=== PATIENT | female | born 1995 | race Caucasian/White ===

== ENCOUNTER 2018-04-24 16:21 | Emergency (ER) | payer BC, OTHER ==
[2018-04-24] MEDS ORDERED: SODIUM CHLORIDE 0.9% 500 ML IV STA (18:22)
--- NOTE | 2018-04-24 18:40 | ED ---
Abdominal Pain HPI - General Source: patient, RN notes reviewed Mode of arrival: ambulatory Limitations: no limitations <Ramu Mak - Last Filed: 04/24/18 18:38> <Rodriguez Barrientos - Last Filed: 04/24/18 20:35> - General Chief Complaint: Abdominal Pain Stated Complaint: Poss UTI-kidney transplant pt Time Seen by Provider: 04/24/18 18:21 - History of Present Illness Initial Comments: This is a 22-year-old female presents emergency Department with chief complaint of urinary tract infection. Patient states that she felt she has some symptoms and was urgent care a few days ago and was told she did have a urinary tract infection. Though she was informed today the culture did not grow anything. She has been taken ciprofloxacin 500 mg twice a day. Patient is concerned that she's been having pain over her kidney transplant read it. She states this was performed 10 years ago at [facility] states that she had renal failure secondary to lupus. Patient states that her hypoid gear generator advised her to the emergency department to have evaluation for lab work and urinalysis and possible ultrasound. Patient states her normal creatinine is somewhere between 1.7- 2.3. She states that she had problems with rejection and states that has not been well since. (Ramu Mak) - Related Data Home Medications Medication Instructions Recorded Confirmed Tacrolimus [Prograf] 2 mg PO BID 06/06/16 04/24/18 Tacrolimus [Prograf] 5 mg PO BID 06/06/16 04/24/18 Norgestimate-Ethinyl Estradiol 1 tab PO DAILY 08/26/17 04/24/18 [Sprintec 28 Day Tablet] Tacrolimus [Prograf] 0.5 mg PO BID 08/26/17 04/24/18 Mycophenolate Mofetil [Cellcept] 750 mg PO BID 04/24/18 04/24/18 predniSONE 10 mg PO Q48H 04/24/18 04/24/18 Allergies Allergy/AdvReac Type Severity Reaction Status Date / Time iron Allergy Itching Verified 04/24/18 18:37 Review of Systems ROS Other: All systems not noted in ROS Statement are negative. <Ramu Mak - Last Filed: 04/24/18 18:38> ROS Other: All systems not noted in ROS Statement are negative. <Rodriguez Barrientos - Last Filed: 04/24/18 20:35> ROS Statement: Those systems with pertinent positive or pertinent negative responses have been documented in the HPI. Past Medical History Past Medical History: No Reported History Additional Past Medical History / Comment(s): Lupus History of Any Multi-Drug Resistant Organisms: None Reported Additional Past Surgical History / Comment(s): kidney transplant Past Psychological History: No Psychological Hx Reported Smoking Status: Never smoker Past Alcohol Use History: Occasional Past Drug Use History: None Reported <Ramu Mak - Last Filed: 04/24/18 18:38> General Exam Limitations: no limitations General appearance: alert, in no apparent distress Head exam: Present: atraumatic, normocephalic, normal inspection Neck exam: Present: normal inspection. Absent: tenderness, meningismus, lymphadenopathy Respiratory exam: Present: normal lung sounds bilaterally. Absent: respiratory distress, wheezes, rales, rhonchi, stridor Cardiovascular Exam: Present: regular rate, normal rhythm, normal heart sounds. Absent: systolic murmur, diastolic murmur, rubs, gallop, clicks GI/Abdominal exam: Present: soft, tenderness (Mild lower abdominal), normal bowel sounds. Absent: distended, guarding, rebound, rigid Back exam: Absent: CVA tenderness (R), CVA tenderness (L) Skin exam: Present: warm, dry, intact, normal color. Absent: rash <Ramu Mak - Last Filed: 04/24/18 18:38> Vital Signs 04/24/18 04/24/18 16:28 20:20 Temperature 98.2 F Pulse Rate 78 74 Respiratory 20 16 Rate Blood Pressure 131/88 114/66 O2 Sat by Pulse 99 100 Oximetry Medical Decision Making <Ramu Mak - Last Filed: 04/24/18 18:38> - Lab Data Result diagrams: 04/24/18 19:34 04/24/18 19:34 - Radiology Data Radiology results: report reviewed (I did review the imaging and report the ultrasound shows no evidence of abnormality with respect to the transplanted kidney.), image reviewed <Rodriguez Barrientos - Last Filed: 04/24/18 20:35> - Medical Decision Making I did review the imaging and report and the lab work. I did discuss the findings with the patient her creatinine is 1.6 which is better with that normally has. Patient is currently on Cipro. Patient will continue with her current medications and follow-up with Dr. Rodriguez tomorrow. (Rodriguez Barrientos) - Lab Data Lab Results 04/24/18 04/24/18 04/24/18 Range/Units 19:34 19:34 19:34 WBC 3.6 L (3.8-10.6) k/uL RBC 3.59 L (3.80-5.40) m/uL Hgb 10.6 L (11.4-16.0) gm/dL Hct 32.0 L (34.0-46.0) % MCV 89.2 (80.0-100.0) fL MCH 29.6 (25.0-35.0) pg MCHC 33.2 (31.0-37.0) g/dL RDW 13.5 (11.5-15.5) % Plt Count 169 (150-450) k/uL Neutrophils % 59 % Lymphocytes % 28 % Monocytes % 7 % Eosinophils % 4 % Basophils % 0 % Neutrophils # 2.1 (1.3-7.7) k/uL Lymphocytes # 1.0 (1.0-4.8) k/uL Monocytes # 0.3 (0-1.0) k/uL Eosinophils # 0.1 (0-0.7) k/uL Basophils # 0.0 (0-0.2) k/uL Sodium 139 (137-145) mmol/L Potassium 4.3 (3.5-5.1) mmol/L Chloride 110 H (98-107) mmol/L Carbon Dioxide 20 L (22-30) mmol/L Anion Gap 9 mmol/L BUN 17 (7-17) mg/dL Creatinine 1.60 H (0.52-1.04) mg/dL Est GFR (CKD-EPI)AfAm 52 (>60 ml/min/1.73 sqM) Est GFR (CKD-EPI)NonAf 45 (>60 ml/min/1.73 sqM) Glucose 87 (74-99) mg/dL Plasma Lactic Acid Saul (0.7-2.0) mmol/L Calcium 9.1 (8.4-10.2) mg/dL Total Bilirubin 0.2 (0.2-1.3) mg/dL AST 16 (14-36) U/L ALT 23 (9-52) U/L Alkaline Phosphatase 51 (38-126) U/L Total Protein 6.3 (6.3-8.2) g/dL Albumin 3.8 (3.5-5.0) g/dL Amylase 87 (30-110) U/L Lipase 149 (23-300) U/L Urine Color Urine Appearance (Clear) Urine pH (5.0-8.0) Ur Specific [place] (1.001-1.035) Urine Protein (Negative) Urine Glucose (UA) (Negative) Urine Ketones (Negative) Urine Blood (Negative) Urine Nitrite (Negative) Urine Bilirubin (Negative) Urine Urobilinogen (<2.0) mg/dL Ur Leukocyte Esterase (Negative) Urine RBC (0-5) /hpf Urine WBC (0-5) /hpf Ur Squamous Epith Cells (0-4) /hpf Urine Bacteria (None) /hpf Urine HCG, Qual Not Detected (Not Detectd) 04/24/18 04/24/18 Range/Units 19:34 19:34 WBC (3.8-10.6) k/uL RBC (3.80-5.40) m/uL Hgb (11.4-16.0) gm/dL Hct (34.0-46.0) % MCV (80.0-100.0) fL MCH (25.0-35.0) pg MCHC (31.0-37.0) g/dL RDW (11.5-15.5) % Plt Count (150-450) k/uL Neutrophils % % Lymphocytes % % Monocytes % % Eosinophils % % Basophils % % Neutrophils # (1.3-7.7) k/uL Lymphocytes # (1.0-4.8) k/uL Monocytes # (0-1.0) k/uL Eosinophils # (0-0.7) k/uL Basophils # (0-0.2) k/uL Sodium (137-145) mmol/L Potassium (3.5-5.1) mmol/L Chloride (98-107) mmol/L Carbon Dioxide (22-30) mmol/L Anion Gap mmol/L BUN (7-17) mg/dL Creatinine (0.52-1.04) mg/dL Est GFR (CKD-EPI)AfAm (>60 ml/min/1.73 sqM) Est GFR (CKD-EPI)NonAf (>60 ml/min/1.73 sqM) Glucose (74-99) mg/dL Plasma Lactic Acid Saul <0.5 L (0.7-2.0) mmol/L Calcium (8.4-10.2) mg/dL Total Bilirubin (0.2-1.3) mg/dL AST (14-36) U/L ALT (9-52) U/L Alkaline Phosphatase (38-126) U/L Total Protein (6.3-8.2) g/dL Albumin (3.5-5.0) g/dL Amylase (30-110) U/L Lipase (23-300) U/L Urine Color Colorless Urine Appearance Clear (Clear) Urine pH 6.5 (5.0-8.0) Ur Specific [place] 1.005 (1.001-1.035) Urine Protein Negative (Negative) Urine Glucose (UA) Negative (Negative) Urine Ketones Negative (Negative) Urine Blood Trace H (Negative) Urine Nitrite Negative (Negative) Urine Bilirubin Negative (Negative) Urine Urobilinogen <2.0 (<2.0) mg/dL Ur Leukocyte Esterase Moderate H (Negative) Urine RBC 3 (0-5) /hpf Urine WBC 23 H (0-5) /hpf Ur Squamous Epith Cells 1 (0-4) /hpf Urine Bacteria Rare H (None) /hpf Urine HCG, Qual (Not Detectd) Disposition <Ramu Mak - Last Filed: 04/24/18 18:38> Is patient prescribed a controlled substance at d/c from ED?: No <Rodriguez Barrientos - Last Filed: 04/24/18 20:35> Clinical Impression: Abdominal pain, Urinary tract infection, History of kidney transplant Disposition: HOME SELF-CARE Condition: Good Instructions: Abdominal Pain (ED), Urinary Tract Infection in Women (ED) Referrals: None,Stated [Primary Care Provider] - 1-2 days Elizabeth Rodriguez MD [STAFF PHYSICIAN] - 1-2 days
[2018-04-24 19:48] LABS: Basophils % (A) 0 %; Eosinophils # (A) 0.1 k/uL (0-0.7); Eosinophils % (A) 4 %; HGB 10.6 gm/dL (11.4-16.0); Lymphocytes % (A) 28 %; MCH 29.6 pg (25.0-35.0); MCHC 33.2 g/dL (31.0-37.0); MCV 89.2 fL (80.0-100.0); Monocytes # (A) 0.3 k/uL (0-1.0); Monocytes % (A) 7 %; Neutrophils # (A) 2.1 k/uL (1.3-7.7); Neutrophils % (A) 59 %; Platelet Count 169 k/uL (150-450); RBC 3.59 m/uL (3.80-5.40); RDW 13.5 % (11.5-15.5); WBC 3.6 k/uL (3.8-10.6)
[2018-04-24 19:52] LABS: Appearance,Urine Clear (Clear); Bacteria,Urine Rare /hpf; Bilirubin,Urine Negative (Negative); Blood,Urine Trace (Negative); Color,Urine Colorless; Glucose,Urine (UA) Negative (Negative); Ketones,Urine Negative (Negative); Leukocyte Esterase,Urine Moderate (Negative); Nitrite,Urine Negative (Negative); PH, Urine 6.5 (5.0-8.0); Protein,Urine Negative (Negative); RBC,Urine 3 /hpf (0-5); Specific Gravity,Urine 1.005 (1.001-1.035); Squamous Epithelial Cell,Urine 1 /hpf (0-4); Urobilinogen,Urine <2.0 mg/dL (<2.0); WBC,Urine 23 /hpf (0-5)
[2018-04-24 20:04] LABS: Albumin 3.8 g/dL (3.5-5.0); Calcium 9.1 mg/dL (8.4-10.2); Potassium 4.3 mmol/L (3.5-5.1); Total Bilirubin 0.2 mg/dL (0.2-1.3); Total Protein 6.3 g/dL (6.3-8.2)
[2018-04-24 20:21] VITALS: RESP 16
--- NOTE | 2018-04-24 20:23 | US ---
EXAMINATION TYPE: US renal transplant w dop DATE OF EXAM: 04/24/2018 COMPARISON: NONE CLINICAL HISTORY: Pain. Pain possible UTI EXAM PERFORMED: Grayscale on [place] kidneys and Doppler duplex and Grayscale imaging of the transplan [place] kidney. EXAM MEASUREMENTS: [place] Right Kidney: 5.1 x 0.9 x 1.2 cm [place] Left Kidney: 5.9 x 2.5 x 1.5 Transplant Kidney: 12.0 x 4.6 x 4.9 cm Location of transplanted kidney: Right side ANATOMY: [place] Right Kidney: Atrophy [place] Left Kidney: Atrophy Transplant Kidney: Appears wnl Bladder: Anechoic Bilateral Jets seen: No IMPRESSION: Transplant kidney appears normal. No evidence of obstruction.
[2018-04-24 20:51] VITALS: BP 106/65; PULSE 63; TEMP 98.8
== END 2018-04-24 20:50 | disposition home or self-care (01) ==
LOC: EC 16:21
DX: N39.0 Urinary tract infection, site not specified (principal); Z94.0 Kidney transplant status; N18.9 Chronic kidney disease, unspecified; Z79.3 Long term (current) use of hormonal contraceptives; Z79.52 Long term (current) use of systemic steroids; Z79.899 Other long term (current) drug therapy; Z91.048 Other nonmedicinal substance allergy status
CPT/HCPCS: 36415; 76776; 80053; 81001; 81025; 82150; 83605; 83690; 85025; 87040; 99284

== ENCOUNTER 2018-05-05 15:21 | Emergency (ER) | payer BC ==
[2018-05-05 16:52] VITALS: RESP 16
[2018-05-05 16:53] LABS: Appearance,Urine Clear (Clear); Bacteria,Urine Rare /hpf; Bilirubin,Urine Negative (Negative); Blood,Urine Negative (Negative); Color,Urine Colorless; Glucose,Urine (UA) Negative (Negative); Ketones,Urine Negative (Negative); Leukocyte Esterase,Urine Small (Negative); Nitrite,Urine Positive (Negative); Protein,Urine Negative (Negative); RBC,Urine 1 /hpf (0-5); Specific Gravity,Urine 1.005 (1.001-1.035); Squamous Epithelial Cell,Urine 1 /hpf (0-4); Urobilinogen,Urine <2.0 mg/dL (<2.0); WBC,Urine 15 /hpf (0-5)
[2018-05-05 17:08] LABS: Basophils % (A) 0 %; Eosinophils # (A) 0.1 k/uL (0-0.7); Eosinophils % (A) 1 %; HCT 31.8 % (34.0-46.0); HGB 10.7 gm/dL (11.4-16.0); Lymphocytes % (A) 13 %; MCH 29.4 pg (25.0-35.0); MCHC 33.6 g/dL (31.0-37.0); MCV 87.4 fL (80.0-100.0); Monocytes # (A) 0.3 k/uL (0-1.0); Monocytes % (A) 4 %; Neutrophils # (A) 6.1 k/uL (1.3-7.7); Neutrophils % (A) 81 %; Platelet Count 241 k/uL (150-450); RBC 3.64 m/uL (3.80-5.40); RDW 13.2 % (11.5-15.5); WBC 7.4 k/uL (3.8-10.6)
[2018-05-05 17:23] LABS: Albumin 4.1 g/dL (3.5-5.0); Calcium 9.4 mg/dL (8.4-10.2); Potassium 4.1 mmol/L (3.5-5.1); Total Bilirubin 0.3 mg/dL (0.2-1.3); Total Protein 6.7 g/dL (6.3-8.2)
--- NOTE | 2018-05-05 22:16 | ED ---
General Adult HPI - General Chief complaint: Abdominal Pain Stated complaint: Abd Pain Time Seen by Provider: 05/05/18 21:17 Source: patient, RN notes reviewed Mode of arrival: ambulatory Limitations: no limitations - History of Present Illness Initial comments: 22-year-old female since to the emergency department for a chief complaint of right lower quadrant pain times one day. The patient states she had the pain about a week ago and was evaluated in the emergency department. Patient states the pain went away until today. Patient has a history of a right kidney transplant as well as ovarian cysts. Renal transplant was 10 years ago and patient has not had problems with it in the past. Patient states she has been nauseous today but has not vomited. No diarrhea. No fevers or chills at home. No concerns for sexually transmitted diseases. Patient has no other complaints at this time including shortness of breath, chest pain, abdominal pain, nausea or vomiting, headache, or visual changes. - Related Data Home Medications Medication Instructions Recorded Confirmed Tacrolimus [Prograf] 2 mg PO BID 06/06/16 05/05/18 Tacrolimus [Prograf] 5 mg PO BID 06/06/16 05/05/18 Norgestimate-Ethinyl Estradiol 1 tab PO DAILY 08/26/17 05/05/18 [Sprintec 28 Day Tablet] Tacrolimus [Prograf] 0.5 mg PO BID 08/26/17 05/05/18 Mycophenolate Mofetil [Cellcept] 750 mg PO BID 04/24/18 05/05/18 predniSONE 10 mg PO Q48H 04/24/18 05/05/18 Previous Rx's Medication Instructions Recorded Cephalexin [Keflex] 500 mg PO Q12HR #20 cap 05/05/18 Allergies Allergy/AdvReac Type Severity Reaction Status Date / Time iron Allergy Itching Verified 05/05/18 21:07 Review of Systems ROS Statement: Those systems with pertinent positive or pertinent negative responses have been documented in the HPI. ROS Other: All systems not noted in ROS Statement are negative. Past Medical History Past Medical History: No Reported History Additional Past Medical History / Comment(s): Lupus, History of Any Multi-Drug Resistant Organisms: None Reported Additional Past Surgical History / Comment(s): kidney transplant - 10 years ago Past Psychological History: No Psychological Hx Reported Smoking Status: Never smoker Past Alcohol Use History: Occasional Past Drug Use History: None Reported General Exam Limitations: no limitations General appearance: alert, in no apparent distress Head exam: Present: atraumatic, normocephalic, normal inspection Eye exam: Present: normal appearance ENT exam: Present: normal exam, mucous membranes moist Neck exam: Present: normal inspection, full ROM. Absent: tenderness, meningismus, lymphadenopathy Respiratory exam: Present: normal lung sounds bilaterally. Absent: respiratory distress, wheezes, rales, rhonchi, stridor Cardiovascular Exam: Present: regular rate, normal rhythm, normal heart sounds. Absent: systolic murmur, diastolic murmur, rubs, gallop, clicks GI/Abdominal exam: Present: soft, tenderness (mild RLQ tenderness, positive obturator sign. No abdominal tenderness elsewhere in the abdomen. No suprapubic tenderness.), normal bowel sounds. Absent: distended, guarding, rebound, rigid Course Vital Signs 05/05/18 05/05/18 05/05/18 16:50 21:02 22:42 Temperature 98.2 F 98.1 F 97.4 F L Pulse Rate 76 93 76 Respiratory 16 16 16 Rate Blood Pressure 107/66 121/66 98/53 O2 Sat by Pulse 100 99 100 Oximetry Medical Decision Making - Medical Decision Making 22-year-old female since to the emergency department for a chief complaint of right lower quadrant abdominal pain times one day. Patient was evaluated in the emergency department last week for similar pain where she received an ultrasound of the kidney which was normal. Patient has a history of ovarian cysts as well as a renal transplant. Patient admits to nausea but denies vomiting or diarrhea. Patient denies fevers or chills at home. On exam patient has right lower quadrant tenderness. No CVA tenderness. CBC and CMP within normal limits. Creat improved since last blood draw. No evidence for appendicitis on ultrasound. Urine shows positive nitrites with small leuk esterase and 15 white blood cells. Patient refused transvaginal ultrasound to rule out ovarian torsion. She states she would rather follow up for that as pain is not severe at this time. Also offered to treat patient for gonorrhea and chlamydia which she refused at this time. Patient would like urine cultured for this. She will be given Keflex due to small urinary tract infection. Patient will be seeing her speed belt sander tender in 2 days. She will will follow up with [employer] this week. She will return to the emergency Department if she has any worsening symptoms. - Lab Data Result diagrams: 05/05/18 17:00 05/05/18 17:00 Lab Results 05/05/18 05/05/18 05/05/18 Range/Units 16:40 16:40 17:00 WBC (3.8-10.6) k/uL RBC (3.80-5.40) m/uL Hgb (11.4-16.0) gm/dL Hct (34.0-46.0) % MCV (80.0-100.0) fL MCH (25.0-35.0) pg MCHC (31.0-37.0) g/dL RDW (11.5-15.5) % Plt Count (150-450) k/uL Neutrophils % % Lymphocytes % % Monocytes % % Eosinophils % % Basophils % % Neutrophils # (1.3-7.7) k/uL Lymphocytes # (1.0-4.8) k/uL Monocytes # (0-1.0) k/uL Eosinophils # (0-0.7) k/uL Basophils # (0-0.2) k/uL Sodium 141 (137-145) mmol/L Potassium 4.1 (3.5-5.1) mmol/L Chloride 107 (98-107) mmol/L Carbon Dioxide 21 L (22-30) mmol/L Anion Gap 13 mmol/L BUN 22 H (7-17) mg/dL Creatinine 1.52 H (0.52-1.04) mg/dL Est GFR (CKD-EPI)AfAm 55 (>60 ml/min/1.73 sqM) Est GFR (CKD-EPI)NonAf 48 (>60 ml/min/1.73 sqM) Glucose 91 (74-99) mg/dL Calcium 9.4 (8.4-10.2) mg/dL Total Bilirubin 0.3 (0.2-1.3) mg/dL AST 15 (14-36) U/L ALT 24 (9-52) U/L Alkaline Phosphatase 67 (38-126) U/L Total Protein 6.7 (6.3-8.2) g/dL Albumin 4.1 (3.5-5.0) g/dL Amylase 75 (30-110) U/L Lipase 132 (23-300) U/L Urine Color Colorless Urine Appearance Clear (Clear) Urine pH 6.0 (5.0-8.0) Ur Specific [place] 1.005 (1.001-1.035) Urine Protein Negative (Negative) Urine Glucose (UA) Negative (Negative) Urine Ketones Negative (Negative) Urine Blood Negative (Negative) Urine Nitrite Positive H (Negative) Urine Bilirubin Negative (Negative) Urine Urobilinogen <2.0 (<2.0) mg/dL Ur Leukocyte Esterase Small H (Negative) Urine RBC 1 (0-5) /hpf Urine WBC 15 H (0-5) /hpf Ur Squamous Epith Cells 1 (0-4) /hpf Urine Bacteria Rare H (None) /hpf Urine HCG, Qual Not Detected (Not Detectd) 05/05/18 Range/Units 17:00 WBC 7.4 (3.8-10.6) k/uL RBC 3.64 L (3.80-5.40) m/uL Hgb 10.7 L (11.4-16.0) gm/dL Hct 31.8 L (34.0-46.0) % MCV 87.4 (80.0-100.0) fL MCH 29.4 (25.0-35.0) pg MCHC 33.6 (31.0-37.0) g/dL RDW 13.2 (11.5-15.5) % Plt Count 241 (150-450) k/uL Neutrophils % 81 % Lymphocytes % 13 % Monocytes % 4 % Eosinophils % 1 % Basophils % 0 % Neutrophils # 6.1 (1.3-7.7) k/uL Lymphocytes # 1.0 (1.0-4.8) k/uL Monocytes # 0.3 (0-1.0) k/uL Eosinophils # 0.1 (0-0.7) k/uL Basophils # 0.0 (0-0.2) k/uL Sodium (137-145) mmol/L Potassium (3.5-5.1) mmol/L Chloride (98-107) mmol/L Carbon Dioxide (22-30) mmol/L Anion Gap mmol/L BUN (7-17) mg/dL Creatinine (0.52-1.04) mg/dL Est GFR (CKD-EPI)AfAm (>60 ml/min/1.73 sqM) Est GFR (CKD-EPI)NonAf (>60 ml/min/1.73 sqM) Glucose (74-99) mg/dL Calcium (8.4-10.2) mg/dL Total Bilirubin (0.2-1.3) mg/dL AST (14-36) U/L ALT (9-52) U/L Alkaline Phosphatase (38-126) U/L Total Protein (6.3-8.2) g/dL Albumin (3.5-5.0) g/dL Amylase (30-110) U/L Lipase (23-300) U/L Urine Color Urine Appearance (Clear) Urine pH (5.0-8.0) Ur Specific [place] (1.001-1.035) Urine Protein (Negative) Urine Glucose (UA) (Negative) Urine Ketones (Negative) Urine Blood (Negative) Urine Nitrite (Negative) Urine Bilirubin (Negative) Urine Urobilinogen (<2.0) mg/dL Ur Leukocyte Esterase (Negative) Urine RBC (0-5) /hpf Urine WBC (0-5) /hpf Ur Squamous Epith Cells (0-4) /hpf Urine Bacteria (None) /hpf Urine HCG, Qual (Not Detectd) Disposition Clinical Impression: Abdominal pain Disposition: HOME SELF-CARE Condition: Good Instructions: Abdominal Pain (ED) Additional Instructions: Please take Tylenol for pain. Please follow-up with your speed belt sander tender at your appointment. Follow up with primary care as well as [facility]. Return to the emergency department if you have any worsening symptoms. Is patient prescribed a controlled substance at d/c from ED?: No Referrals: Joni Monroy MD [STAFF PHYSICIAN] - 1-2 days Time of Disposition: 23:06
--- NOTE | 2018-05-05 22:43 | US ---
EXAMINATION TYPE: US abdomen APPY DATE OF EXAM: 05/05/2018 COMPARISON: NONE CLINICAL HISTORY: Pain. RLQ pain. APPENDIX AP Diameter (normal < 6mm): 3 mm Measured outer wall to outer wall. Is the appendix seen in its entirety from the proximal cecum to distal end: No Is the appendix compressible: Yes Does the appendix wall appear hypervascular: No Is an appendicolith present: No Is there inflammatory changes or free fluid present: No Appendix is not seen in its entirety. IMPRESSION: No solid or cystic masses identified. A short segment of the appendix is seen and appear s normal.
[2018-05-05] MEDS ORDERED: cefTRIAXone 250 MG VIAL IM STA (23:07)
[2018-05-05] MEDS ORDERED: ACETAMINOPHEN TAB 500 MG TAB PO STA (23:43)
[2018-05-05 23:55] VITALS: BP 116/70; PULSE 90; TEMP 98.3
[2018-05-07 14:21] LABS: C. trachomatis,PCR Negative (Neg,Equiv); Chlamydia trachomatis Source Urine; N. gonorrhoeae,PCR Negative (Neg,Equiv); Neisseria Source Urine
== END 2018-05-05 23:58 | disposition home or self-care (01) ==
LOC: EC 15:21
DX: R10.31 Right lower quadrant pain (principal); R11.0 Nausea; Z79.3 Long term (current) use of hormonal contraceptives; Z79.52 Long term (current) use of systemic steroids; Z79.899 Other long term (current) drug therapy; Z91.048 Other nonmedicinal substance allergy status; Z94.0 Kidney transplant status; Z53.29 Procedure and treatment not carried out because of patient's decision for other reasons
CPT/HCPCS: 99284; 96372; 36415; 80053; 82150; 83690; 85025; 81001; 81025; 87491; 87591; 87086; 76705; J0696; 87077; 87186